=== PATIENT | female | born 1960 | race Caucasian/White ===

== ENCOUNTER 2019-11-13 15:15 | Outpatient (CLI) | payer OTHER, SELFPAY ==
--- NOTE | ~2019-11-13 | US_ITS ---
EXAMINATION: US thyroid DATE: 11/13/2019 16:41 INDICATION: Nontoxic goiter TECHNIQUE: Multiple ultrasound images of the thyroid were obtained. COMPARISON: None. FINDINGS: The right thyroid lobe measures 5.6 x 1.7 x 2.2 cm. The left thyroid lobe measures 5.3 x 1.4 x 2.0 cm . Interval increase in size of a couple wider than tall solid hypoechoic nodules with smooth margins in the right thyroid. The larger previously measured 1.3 x 1.2 x 0.8 cm, currently 1.7 x 1.4 x 0.9 cm coarse internal calcification (TI-RADS 4, moderately suspicious , FNA if >=1.5 cm, annual followup i s >1 cm). Smaller nodules without internal echogenic foci but also TI-RADS 4 previously measured 1.4 x 0.7 x 1.1 cm, currently measures 1.6 x 1.4 x 0.8 cm. Finally there is a 1.1 cm round hypoechoic so lid nodule at the inferior right thyroid with partially smooth, partially ill-defined margins also TI RADS 4 which measures approximately 9 mm on the prior study 1.3 cm solid isoechoic nodule with ill-d efined margins and without echogenic foci in the mid left thyroid (TI-RADS 3, mildly suspicious , FNA if >=2.5 cm, annual followup is >1.5 cm). Increasing shadowing calcification at an 8 mm solid hypoec hoic nodule with poorly defined margins TI RADS 4 at the lateral left thyroid which previously measur ed 11 x 8 mm. A couple additional <1 cm solid hypoechoic TI-RADS 4 nodules in the left thyroid lobe. IMPRESSION: 1. Multinodular goiter. The 2 largest TI RADS 4, 1.7 cm and 1.6 cm nodules in the right thyroid lobe which have increase in size since the prior study and no criteria for ultrasound-guided biopsy which would be recommended. Reviewed, dictated and finalized at location A. IMPRESSION: 1. Multinodular goiter. The 2 largest TI RADS 4, 1.7 cm and 1.6 cm nodules in t he right thyroid lobe which have increase in size since the prior study and no criteria for ultrasound-guided biopsy which would be recommended.
== END 2019-11-13 15:16 | disposition home or self-care (01) ==
PROVIDERS: PCP Family Medicine; Visit Provider Family Medicine
DX: E04.2 Nontoxic multinodular goiter (principal)
CPT/HCPCS: 76536

== ENCOUNTER 2019-11-30 12:53 | Outpatient (CLI) | payer OTHER, SELFPAY ==
--- NOTE | ~2019-11-30 | US_ITS ---
EXAMINATION: 1. US FNA additional 2. US FNA w image guidance DATE: 11/30/2019 14:29 INDICATION: Thyroid nodules. TECHNIQUE: The procedure and its benefits, risks, and benefits were discussed with the patient. Risks specifical ly discussed included bleeding. The patient verbalized understanding of the risks and agreed to proce ed. The neck was prepped and draped in the usual sterile manner. 1% lidocaine was used for local ane sthesia. Five passes were made with a 25G needle into the lesion in superior right thyroid lobe. Ap propriate needle location was documented with continuous sonographic guidance. Five passes were made with a 25G needle into the lesion in inferior right thyroid lobe. Appropriate needle location was documented with continuous sonographic guidance. There were no immediate complic ations. The patient understood to call the ordering physician for results after a week and a half and verbalized that understanding. FINDINGS: Grayscale ultrasound images demonstrate needles advanced into a 1.7 cm nodule in superior right thyro id lobe for biopsy. Risk ultrasound images demonstrate needles advanced into a 1.6 cm nodule in infer ior right thyroid lobe. IMPRESSION: 1. Ultrasound-guided fine needle aspiration of a nodule in superior right thyroid lobe. 2. Ultrasound-guided fine-needle aspiration of a nodule in inferior right thyroid lobe. Reviewed, dictated and finalized at location A. IMPRESSION: 1. Ultrasound-guided fine needle aspiration of a nodule in superior right thyr oid lobe. 2. Ultrasound-guided fine-needle aspiration of a nodule in inferior right thyro id lobe.
== END 2019-11-30 12:54 | disposition home or self-care (01) ==
PROVIDERS: PCP Family Medicine; Visit Provider Family Medicine
DX: E04.9 Nontoxic goiter, unspecified (principal)
CPT/HCPCS: 10005; 10006; 88173; 88305; 88307

== ENCOUNTER 2019-12-24 10:17 | Outpatient (CLI) | payer OTHER, SELFPAY ==
--- NOTE | ~2019-12-24 | MM_ITS ---
EXAMINATION: MM screening [facility] BI w alejandrina HISTORY: Screening mammogram TECHNIQUE: Craniocaudal and mediolateral oblique 3-D tomosynthesis images were obtained and synthetic 2-D images were generated. CAD analysis was submitted and interpreted. COMPARISON: 12/29/2018, 12/19/2018, 12/01/2017 BREAST PARENCHYMAL COMPOSITION: There are scattered areas of fibroglandular density. FINDINGS: There is no evidence of suspicious mass, calcification, or architectural distortion to sugg est malignancy in either breast. There has been no suspicious interval change. IMPRESSION: 1. No mammographic evidence of malignancy. 2. Recommend routine screening mammography in one year. BI-RADS Category 1: Negative Reviewed, dictated and finalized at location A. CING SYSTEM OPERATOR
== END 2019-12-24 10:18 | disposition home or self-care (01) ==
LOC: ANHIMG 10:19
PROVIDERS: PCP Family Medicine; Visit Provider Obstetrics & Gynecology
DX: Z12.31 Encounter for screening mammogram for malignant neoplasm of breast (principal)
CPT/HCPCS: 77063; 77067

== ENCOUNTER → 2020-06-27 17:26 | Outpatient (CLI) | payer OTHER, SELFPAY ==
--- NOTE | ~2020-06-27 | DEXA_ITS ---
Bone Density Report Name: Sheila Leiva Age: 59 Sex: Female Ethnicity: White Date of : 1960 Indication: postmenopausal; screening for osteoporosis; height loss; hysterectomy; rheumatoid arthritis; Referring Provider: AMANDA GUTIERRES Study: Bone densitometry was performed. Exam Date: June 27, 2020 Accession number: [id number] Bone Density: Region BMD T-score Z-score Classification AP Spine (L1-L4) 0.851 -1.8 -0.4 Osteopenia Femoral Neck (Left) 0.614 -2.1 -0.9 Osteopenia Total Hip (Left) 0.724 -1.8 -0.9 Osteopenia Femoral Neck (Right) 0.743 -1.0 0.3 Normal Total Hip (Right) 0.814 -1.0 -0.2 Normal Total Hip Mean 0.769 -1.4 -0.6 Osteopenia World Health Organization criteria for BMD impression classify patients as: Normal (T-score at or above -1.0), Osteopenia (T-score between -1.0 and -2.5), or Osteoporosis (T-score at or below -2.5). 10-year Fracture Risk(1): Major Osteoporotic Fracture 15% Hip Fracture 4.3% Reported Risk Factors: [place] (), Neck BMD=0.614, BMI=25.9, smoking, rheumatoid arthritis, alcohol use (1) FRAX(R) Version 3.08. Fracture probability calculated for an untreated patient. Fracture probability may be lower if the patient has received treatment. Clinical Information Provided by Patient: Smokes Has rheumatoid arthritis Has 3 or more alcoholic drinks per day Has used the following medications: Vitamin D Has the following medical conditions: Hysterectomy Patient maximum height was 68.0 Menopause Age: 39 No regular weight bearing exercise Does not regularly consume dairy products Drinks caffeinated beverages Onset of menses at age 15 Number of children 0 Impression: The patient has low bone mass, based on the Left Femoral Neck T-score. The patient has an estimated ten-year risk of hip fracture of 4.3% and an estimated ten-year risk of major fracture of 15%, based on the WHO FRAX algorithm. The patient has risk factors, including: smoking, excessive alcohol use. Discussion: BONE DENSITY IS LOW AT ONE OR MORE SKELETAL SITES. THE PATIENT'S BMD AND CLINICAL RISK FACTORS CONTRIBUTE TO THIS PATIENT'S INCREASED RISK OF FRACTURE. This patient's lowest T-score is low at one or more skeletal sites. It meets the World Health Organization's (WHO) criteria for ?low bone mass? (T-score between -1.0 and -2.5). The patient's 10-year risk of hip fracture as calculated by FRAX exceeds the threshold where pharmacological therapy is recommended by the National Osteoporosis Foundation (NOF). However, all treatment decisions require clinical judgment and consideration of individual patient factors, including patient preferences, comorbidities, previous drug use, risk factors not captured in the FRAX model (e.g., frailty, falls, vitamin D deficiency, increased bone turnover, in
== END ==
PROVIDERS: Visit Provider Family Medicine
DX: E83.52 Hypercalcemia (principal); M85.88 Other specified disorders of bone density and structure, other site; M85.852 Other specified disorders of bone density and structure, left thigh
CPT/HCPCS: 77080